=== PATIENT | male | born 1935 | race Caucasian/White ===

== ENCOUNTER 2019-07-25 11:41 | Inpatient (IN) | payer MEDICARE ==
[~2019-07-25] VITALS: Ht 165.1 cm; Wt 78.0 kg
[2019-07-25 20:10] VITALS: BP 136/61
[2019-07-25] MEDS ORDERED: ACET-2154 PO (21:04)
[2019-07-25] MEDS ORDERED: CLOP75TA15 PO (21:04)
[2019-07-25] MEDS ORDERED: ASPI-866 PO (21:04)
[2019-07-25] MEDS ORDERED: ATOR80TA PO (21:04)
[2019-07-25] MEDS ORDERED: TAMS-3 PO (21:04)
[2019-07-25] MEDS ORDERED: GABA100C PO (21:04)
[2019-07-25] MEDS ORDERED: DEXTROSE 50% 50 ML DISP.SYRIN IV PRN (21:15)
[2019-07-25] MEDS ORDERED: ACETAMINOPHEN 325 MG TABLET PO PRN (21:30)
--- NOTE | 2019-07-25 21:34 | NUR ---
Admitted patient from [facility] with admitting diagnosis of CVA. Patient arrived in the unit @1910 by vanessa. VSS, condition fair. AAO x1 only by name, with periods of confusion. No acute distress or SOB was noted. On room air. No complain of pain. All admission works done. Medication reconciliation done and contacted [facility] on-call doctor, Mariposa Cardenas will do the reconciliation. MRSA swab done and sent to the lab. Physical assessment done. Skin assessed, there are some bruises on the left and right FA and hands as well as a large bruises (15 x7 cm) over the right side of abdomen and right flank, pictures taken and put in the chart. DVT pump in place and working. Fall precaution observed, safety measures maintained. Bed in the low and locked position, side rails up x2 for safety, bed alarm on. Educated patient to use call light when needs something. Call light and frequently using items within reach. Continue to monitor.
--- NOTE | 2019-07-25 22:53 | NUR ---
Patient complained of being uncomfortable with DVT pump and tried to remove it. Explained the benefits of DVT pump, still asked to remove it. Took off the DVT pump. Continue to monitor.
--- NOTE | 2019-07-25 23:57 | NUR ---
Patient tried to get out of bed multiple times. Not aware of his limitation, stated "I have to go out of bed to pee". Helped him to pee using urinal. Bed alarm is on. Continue to close monitor.
[2019-07-26 05:22] VITALS: BP 144/64
[2019-07-26] MEDS: BLOOD SUGAR DIAGNOSTIC 1 EACH STRIP VI SCH ×4 (07:04→20:42)
[2019-07-26 08:40] VITALS: BP 148/52
[2019-07-26] MEDS: CLOPIDOGREL 75 MG TABLET PO SCH (09:25)
[2019-07-26] MEDS: GABAPENTIN 100 MG CAPSULE PO SCH ×2 (09:25→16:25)
[2019-07-26] MEDS: ASPIRIN EC 81 MG TABLET.DR PO SCH (09:25)
[2019-07-26] MEDS: INSULIN REGULAR, HUMAN 300 UNIT/3 ML VIAL SQ PRN (12:06)
[2019-07-26] MEDS: AMLODIPINE 5 MG TABLET PO SCH (13:34)
[2019-07-26 16:01] VITALS: BP 98/56
--- NOTE | 2019-07-26 17:29 | NUR ---
303 Patient stable, no distress noted or reports of pain. Fall, aspiration and skin precautions in place. Followed by therapies, kindly refer to notes. Patient oriented to self only, redirecting/reorienting as needed, slurred speech. Compliant with treatment and medication. End of shift chart check done, will endorse care to oncoming shift.
[2019-07-26 20:27] VITALS: BP 103/53
[2019-07-26] MEDS: TAMSULOSIN HCL 0.4 MG CAP.SR.24H PO SCH (20:31)
[2019-07-26] MEDS: INSULIN REGULAR, HUMAN 300 UNITS/3 ML VIAL SQ PRN (20:31)
[2019-07-26] MEDS: ATORVASTATIN 40 MG TABLET PO SCH (20:32)
[2019-07-26] MEDS ORDERED: Medication Not On Formulary EA (Atorvastatin Calcium (Lipitor) 80 MG) PO SCH (21:00)
--- NOTE | 2019-07-27 03:38 | NUR ---
Received patient in bed. AAO x 2, some periods of confusion. No acute distress or SOB was noted. On room air. No complain of pain. Physical assessment done. safety measures maintain, fall prevention observed. Skin assessed. All due medications administered and tolerated well. Accu check @ 2100: 146 covered with 2 units insulin based on sliding scale. All needs attended promptly. Bed in locked and low position, side rails up x2 for safety, bed alarm on. Call light and frequently using items within reach. Continue to monitor and will endorse to day shift nurse.
[2019-07-27 04:20] VITALS: BP 113/54
[2019-07-27] MEDS: BLOOD SUGAR DIAGNOSTIC 1 EACH STRIP VI SCH ×4 (06:36→20:07)
[2019-07-27 07:17] LABS: BASOPHILS # (AUTO) 0.1 K/uL (0.0-8.0); BASOPHILS % (AUTO) 1.2 % (0.0-2.0); EOSINOPHILS # (AUTO) 0.2 K/uL (0.0-0.7); EOSINOPHILS % (AUTO) 3.2 % (0.0-7.0); HEMATOCRIT 36.5 % (36.7-47.1); HEMOGLOBIN 12.3 g/dL (12.5-16.3); LYMPHOCYTES # (AUTO) 1.7 K/uL (20.0-40.0); LYMPHOCYTES % (AUTO) 27.6 % (20.5-51.5); MEAN CORPUSCULAR HEMOGLOBIN 29.5 uug (23.8-33.4); MEAN CORPUSCULAR HGB CONC 34 g/dL (32.5-36.3); MEAN CORPUSCULAR VOLUME 87.3 fL (73.0-96.2); MONOCYTES # (AUTO) 0.6 K/uL (2.0-10.0); MONOCYTES % (AUTO) 9.1 % (0.0-11.0); NEUTROPHILS # (AUTO) 3.6 K/uL (1.8-8.9); NEUTROPHILS % (AUTO) 58.9 % (38.5-71.5); PLATELET COUNT (AUTO) 208 K/uL (152-348); RED BLOOD CELL COUNT(AUTO) 4.19 MIL/uL (4.06-5.63); WHITE BLOOD COUNT (AUTO) 6.1 K/uL (3.6-10.2)
[2019-07-27 07:37] LABS: ALANINE AMINOTRANSFERASE 25 U/L (16-63); ALKALINE PHOSPHATASE 80 U/L (50-136); ASPARTATE AMINOTRANSFERASE 22 U/L (15-37); BILIRUBIN,TOTAL 0.7 mg/dL (0.2-1.0); CARBON DIOXIDE 29 mmol/L (21-32); CHLORIDE 105 mmol/L (98-107); CREATININE 1.9 mg/dL (0.6-1.3); GLUCOSE 110 mg/dL (74-106); MAGNESIUM 1.6 mg/dL (1.8-2.4); PHOSPHOROUS 3.6 mg/dL (2.5-4.9); POTASSIUM 4.2 mmol/L (3.5-5.1); TOTAL PROTEIN, SERUM 6.9 g/dL (6.4-8.2); UREA NITROGEN, BLOOD 24 mg/dL (7-18)
[2019-07-27] MEDS: GABAPENTIN 100 MG CAPSULE PO SCH ×2 (08:47→17:02)
[2019-07-27] MEDS: ASPIRIN EC 81 MG TABLET.DR PO SCH (08:47)
[2019-07-27] MEDS: CLOPIDOGREL 75 MG TABLET PO SCH (08:47)
[2019-07-27] MEDS: AMLODIPINE 5 MG TABLET PO SCH (08:47)
[2019-07-27] MEDS ORDERED: MAGNESIUM OXIDE 400 MG TABLET PO ONE (11:30)
[2019-07-27 11:41] VITALS: BP 130/59
[2019-07-27] MEDS: INSULIN REGULAR, HUMAN 300 UNIT/3 ML VIAL SQ PRN (12:03)
[2019-07-27 16:00] VITALS: BP 118/36
[2019-07-27] MEDS: ATORVASTATIN 40 MG TABLET PO SCH (20:00)
[2019-07-27] MEDS: TAMSULOSIN HCL 0.4 MG CAP.SR.24H PO SCH (20:00)
[2019-07-27] MEDS: INSULIN REGULAR, HUMAN 300 UNITS/3 ML VIAL SQ PRN (20:09)
[2019-07-28 05:27] VITALS: BP 137/46
--- NOTE | 2019-07-28 05:44 | NUR ---
Received patient in bed. AAO x 1, some periods of confusion. No acute distress or SOB was noted. On room air. No complain of pain. Physical assessment done. safety measures maintain, fall prevention observed. Skin assessed. All due medications administered and tolerated well. Accu check @ 2100: 155 covered with 2 units insulin based on sliding scale. All needs attended promptly. Bed in locked and low position, side rails up x2 for safety, bed alarm on. Call light and frequently using items within reach. Continue to monitor and will endorse to day shift nurse.
[2019-07-28] MEDS: BLOOD SUGAR DIAGNOSTIC 1 EACH STRIP VI SCH ×4 (06:30→20:42)
[2019-07-28 07:30] VITALS: BP 117/41
[2019-07-28] MEDS: GABAPENTIN 100 MG CAPSULE PO SCH ×2 (08:43→17:06)
[2019-07-28] MEDS: AMLODIPINE 5 MG TABLET PO SCH (08:43)
[2019-07-28] MEDS: ASPIRIN EC 81 MG TABLET.DR PO SCH (08:43)
[2019-07-28] MEDS: CLOPIDOGREL 75 MG TABLET PO SCH (08:44)
[2019-07-28] MEDS: INSULIN REGULAR, HUMAN 300 UNIT/3 ML VIAL SQ PRN ×2 (08:47→12:12)
--- NOTE | 2019-07-28 08:58 | NUR ---
PATIENT CALM AND COMFORTABLE WITH NO SIGNS OF DISTRESS; PATIENT WITH STABLE VITAL SIGNS ; PATIENT CONTINUE TO BE MONITORED.
--- NOTE | 2019-07-28 09:35 | NUR ---
INDIVIDUALIZED PLAN OF CARE
[2019-07-28 16:00] VITALS: BP 149/54
--- NOTE | 2019-07-28 18:46 | NUR ---
PATIENT CALM AND COMFORTABLE THROUGH OUT SHIFT; PATIENT HAD COUGHING EPISODE AFTER LUNCH; CXR DONE TO R/O ASPIRATION ; NO EVIDENCE PER REPORT. PATIENT ANOX2 ; PATIENT MUST REORIENTED THROUGH OUT SHIFT.
[2019-07-28 19:57] VITALS: BP 108/86
--- NOTE | 2019-07-28 19:57 | NUR ---
Received patient awake and alert in bed, A/Ox1. slightly slurred speech noted. No complaints of pain or SOB. Vitals WNL. Fall and aspiration precautions initiated. Bed is low and locked, call light within reach, side rails up x3. Per day shift nurse patient gets confused at times, trying to get out of bed. Bed alarm on. Will continue to monitor.
[2019-07-28] MEDS: ATORVASTATIN 40 MG TABLET PO SCH (20:42)
[2019-07-28] MEDS: TAMSULOSIN HCL 0.4 MG CAP.SR.24H PO SCH (20:42)
[2019-07-28] MEDS: INSULIN REGULAR, HUMAN 300 UNITS/3 ML VIAL SQ PRN (20:44)
--- NOTE | 2019-07-28 22:00 | NUR ---
When STATISTICS MANAGER changing patient, noted non-blanchable redness, per STATISTICS MANAGER she took care of patient before and had no redness before. Took picture, cleaned, applied z-guard and mepilex and ordered wound care consult. Will continue to monitor.
[2019-07-29 05:05] VITALS: BP 140/48
[2019-07-29] MEDS: BLOOD SUGAR DIAGNOSTIC 1 EACH STRIP VI SCH ×4 (06:34→21:00)
[2019-07-29 07:44] VITALS: BP 143/47
[2019-07-29] MEDS: CLOPIDOGREL 75 MG TABLET PO SCH (08:57)
[2019-07-29] MEDS: ASPIRIN EC 81 MG TABLET.DR PO SCH (08:57)
[2019-07-29] MEDS: GABAPENTIN 100 MG CAPSULE PO SCH ×2 (08:57→17:00)
[2019-07-29] MEDS: AMLODIPINE 5 MG TABLET PO SCH (09:02)
--- NOTE | 2019-07-29 10:30 | NUR ---
LALO Note: SW met with patient today and conducted the Post Stroke Depression Screening and patient scored a level 6, which requires a psychiatry consultation. This hand sign writer informed patient's nurse, Lorna about the psychiatry consult request. Clinical Care Manager informed the patient about the importance of stroke. Patient was provided stroke referrals such as: Stroke Family Warmline at (0-504-6-STROKE) and Caring for a stroke survivor ( ). call circuit worker also educated patient on the signs of Stroke and to immediately call 911. Clinical Care Manager provided patient with a stroke educational packet with information such as; Dietary food, what stroke is, risks, emotional support, finding support, medical management, and effects of stroke.
--- NOTE | 2019-07-29 10:45 | NUR ---
CALL RECEIVED FROM REHAB CHIEF INVESTIGATOR WANTED ME TO WRITE AN ORDER FOR PSYCH EVAL NOTIFIED HER THAT PHYSICIAN EVALUATION IS USUALLY DOCTOR TO DOCTOR AND THAT I WILL NOTIFY DR MAZARIEGOS HIS MEDICAL DOCTOR FOR THE ORDER. CALLED DR ROGERS AND NOTIFIED HIM AND HE STATED [facility] WILL EVALUATE THE PATIENT AND WILL ACT ON THIS.
--- NOTE | 2019-07-29 11:39 | NUR ---
WOUND CARE CONSULT: PT PRESENTS WITH MULTIPLE AREAS OF BRUISING, PRESENT ON ADMISSION. PT ALSO NOTED TO HAVE DISCOLORATION TO BILATERAL BUTTOCKS, POSSIBLE FROM SHEARING. SKIN IS FRAGILE. RECOMMENDATIONS MADE FOR SKIN PROTECTION. DISCUSSED WITH NURSING STAFF. WILL SEE PRN. LYNNE IN AGREEMENT WITH PLAN OF CARE. Addendum: 07/29/19 at 1140 by LB JOLLEY RN Amended: Links added.
[2019-07-29] MEDS: INSULIN REGULAR, HUMAN 300 UNIT/3 ML VIAL SQ PRN ×2 (12:45→17:20)
[2019-07-29 15:59] VITALS: BP 143/55
--- NOTE | 2019-07-29 17:30 | NUR ---
PATIENT IS IN HIS ROOM FEEDING SELF SOMEWHAT CONFUSED BUT ALERT TO SELF REFUSED HIS NEURONTIN AT THIS TIME PATIENT MADE COMFORTABLE AND WILL CONTINUE TO OBSERVE.
[2019-07-29 20:00] VITALS: BP 142/52
--- NOTE | 2019-07-29 20:00 | NUR ---
Received patient awake and alert x1. Patient shows no signs or symptoms of distress at this time. Vital signs stable. Call light within reach. Side rails x2 are up. Bed set to lowest position. Will continue to monitor patient.
[2019-07-29] MEDS: TAMSULOSIN HCL 0.4 MG CAP.SR.24H PO SCH (20:54)
[2019-07-29] MEDS: ATORVASTATIN 40 MG TABLET PO SCH (20:54)
[2019-07-29] MEDS: Z GUARD REMEDY PASTE 57 GM TUBE TOP SCH (21:05)
--- NOTE | 2019-07-29 23:56 | NUR ---
Endorsed patient to NUSRAT Diaz, for continuity of care.
[2019-07-30] VITALS: BP 128/39
--- NOTE | 2019-07-30 00:58 | NUR ---
asleep upon rounds. admitted for a change in mental status. Needs attended. Incontinent of urine. Kept clean and dry. VSS. Fall precautions maintained. Siderails up for safety. No acute distress noted.
[2019-07-30 04:00] VITALS: BP 128/39
--- NOTE | 2019-07-30 06:08 | NUR ---
End of shift notes: Quiet night. VSS Incontinent of large amount of urine. Kept clean and dry. No BM noted this shift. Attended to needs. Will monitor patient. Accucheck 125, Siderails up for safety.
[2019-07-30] MEDS: BLOOD SUGAR DIAGNOSTIC 1 EACH STRIP VI SCH ×4 (06:33→20:21)
[2019-07-30 08:00] VITALS: BP 160/51
[2019-07-30] MEDS: GABAPENTIN 100 MG CAPSULE PO SCH ×2 (09:28→18:02)
[2019-07-30] MEDS: CLOPIDOGREL 75 MG TABLET PO SCH (09:28)
[2019-07-30] MEDS: ASPIRIN EC 81 MG TABLET.DR PO SCH (09:28)
[2019-07-30] MEDS: AMLODIPINE 5 MG TABLET PO SCH (09:29)
[2019-07-30] MEDS: Z GUARD REMEDY PASTE 57 GM TUBE TOP SCH ×2 (09:29→20:22)
[2019-07-30] MEDS: INSULIN REGULAR, HUMAN 300 UNIT/3 ML VIAL SQ PRN ×2 (09:30→12:32)
[2019-07-30 16:04] VITALS: BP 137/44
[2019-07-30] MEDS: INSULIN REGULAR, HUMAN 300 UNITS/3 ML VIAL SQ PRN ×2 (18:02→20:24)
[2019-07-30 20:14] VITALS: BP 136/61
[2019-07-30] MEDS: TAMSULOSIN HCL 0.4 MG CAP.SR.24H PO SCH (20:22)
[2019-07-30] MEDS: ATORVASTATIN 40 MG TABLET PO SCH (20:22)
--- NOTE | 2019-07-31 03:31 | NUR ---
Received patient in bed. AAO x 1, some periods of confusion. No acute distress or SOB was noted. On room air. No complain of pain. Physical assessment done. safety measures maintain, fall prevention observed. Skin assessed. All due medications administered and tolerated well. Accu check @ 2100: 141 covered with 2 units insulin based on sliding scale. All needs attended promptly. Assisted him to the bathroom as needed. Bed in locked and low position, side rails up x2 for safety, bed alarm on. Call light and frequently using items within reach. Continue to monitor and will endorse to day shift nurse.
[2019-07-31 04:46] VITALS: BP 100/62
[2019-07-31] MEDS: BLOOD SUGAR DIAGNOSTIC 1 EACH STRIP VI SCH ×4 (06:30→20:44)
[2019-07-31] MEDS: GABAPENTIN 100 MG CAPSULE PO SCH ×2 (09:03→17:10)
[2019-07-31] MEDS: ASPIRIN EC 81 MG TABLET.DR PO SCH (09:03)
[2019-07-31] MEDS: CLOPIDOGREL 75 MG TABLET PO SCH (09:03)
[2019-07-31] MEDS: Z GUARD REMEDY PASTE 57 GM TUBE TOP SCH ×2 (09:05→20:38)
[2019-07-31 09:07] VITALS: BP 141/55
[2019-07-31] MEDS: AMLODIPINE 5 MG TABLET PO SCH (09:07)
[2019-07-31 09:26] LABS: HEMATOCRIT 38.1 % (36.7-47.1); MEAN CORPUSCULAR HEMOGLOBIN 29.8 uug (23.8-33.4); MEAN CORPUSCULAR HGB CONC 34 g/dL (32.5-36.3); MEAN CORPUSCULAR VOLUME 87.7 fL (73.0-96.2); PLATELET COUNT (AUTO) 316 K/uL (152-348); RED BLOOD CELL COUNT(AUTO) 4.35 MIL/uL (4.06-5.63); WHITE BLOOD COUNT (AUTO) 10.9 K/uL (3.6-10.2)
[2019-07-31 09:32] LABS: BASOPHILS % (AUTO) 0.6 % (0.0-2.0); EOSINOPHILS % (AUTO) 0.4 % (0.0-7.0); LYMPHOCYTES % (AUTO) 18.6 % (20.5-51.5); MONOCYTES % (AUTO) 4.9 % (0.0-11.0); NEUTROPHILS % (AUTO) 75.5 % (38.5-71.5)
[2019-07-31] MEDS: INSULIN REGULAR, HUMAN 300 UNIT/3 ML VIAL SQ PRN ×2 (09:36→11:34)
[2019-07-31 11:09] LABS: ALANINE AMINOTRANSFERASE 29 U/L (16-63); ALKALINE PHOSPHATASE 110 U/L (50-136); ASPARTATE AMINOTRANSFERASE 25 U/L (15-37); BILIRUBIN,TOTAL 0.5 mg/dL (0.2-1.0); CARBON DIOXIDE 28 mmol/L (21-32); CHLORIDE 99 mmol/L (98-107); CHOLESTEROL 153 mg/dL (<200); CREATININE 2.1 mg/dL (0.6-1.3); GLUCOSE 203 mg/dL (74-106); HDL CHOLESTEROL 54 mg/dL (40-60); MAGNESIUM 1.9 mg/dL (1.8-2.4); PHOSPHOROUS 3.3 mg/dL (2.5-4.9); POTASSIUM 3.9 mmol/L (3.5-5.1); TRIGLYCERIDES 77 MG/DL (30-150); UREA NITROGEN, BLOOD 28 mg/dL (7-18)
[2019-07-31 12:22] LABS: THYROID STIMULATING HORMONE 5.003 mIU/mL (0.358-3.740)
[2019-07-31 16:00] VITALS: BP 144/58
--- NOTE | 2019-07-31 17:39 | NUR ---
Patient alert, oriented x 1, not in any form of distress, on room air, and no complain of any pain or discomfort during the shift. Due medications administered and tolerated well. Needs attended to promptly. Call light and frequently used items placed within patient's reach. Safety measures maintained.
--- NOTE | 2019-07-31 19:30 | NUR ---
Sleeping during initial rounds with HOB elevated. No s/s of respiratory distress. No s/s of pain/discomforts at this time. Safety measures and fall precaution maintained. Continue care as planned.
[2019-07-31 20:03] VITALS: BP 143/53
[2019-07-31] MEDS: ATORVASTATIN 10 MG TABLET PO SCH (20:38)
[2019-07-31] MEDS: TAMSULOSIN HCL 0.4 MG CAP.SR.24H PO SCH (20:38)
[2019-07-31] MEDS: INSULIN REGULAR, HUMAN 300 UNITS/3 ML VIAL SQ PRN (20:47)
[2019-08-01 04:03] VITALS: BP 132/60
--- NOTE | 2019-08-01 05:54 | NUR ---
Shift End Report: VS stable. Slept good. No complaint presented all night. No fall/injury. Ambulated to the bathroom with minimal assist with slow unsteady gait. All needs attended and met. Bed bath given. Good skin/gilberto care rendered after each incontinence. No significant event reported. Continue current rehab plan of care.
[2019-08-01] MEDS: BLOOD SUGAR DIAGNOSTIC 1 EACH STRIP VI SCH (06:31)
[2019-08-01 08:00] VITALS: BP 119/43
[2019-08-01] MEDS: ASPIRIN EC 81 MG TABLET.DR PO SCH (09:40)
[2019-08-01] MEDS: GABAPENTIN 100 MG CAPSULE PO SCH ×2 (09:40→16:38)
[2019-08-01] MEDS: AMLODIPINE 5 MG TABLET PO SCH (09:40)
[2019-08-01] MEDS: Z GUARD REMEDY PASTE 57 GM TUBE TOP SCH ×2 (09:41→20:48)
[2019-08-01] MEDS: CLOPIDOGREL 75 MG TABLET PO SCH (09:41)
--- NOTE | 2019-08-01 11:53 | NUR ---
INTERDISCIPLINARY TEAM CONFERENCE
[2019-08-01 15:39] VITALS: BP 132/55
--- NOTE | 2019-08-01 18:52 | NUR ---
patient vitals stable, participated with PT, OT services, no distress noted
--- NOTE | 2019-08-01 19:30 | NUR ---
Awake and alert, in bed, watching TV when received. HOB elevated. No s/s of respiratory distress. Denies any pain/discomforts at this time. Safety measures and fall precaution maintained. Continue care as planned.
[2019-08-01 20:17] VITALS: BP 131/48
[2019-08-01] MEDS: ATORVASTATIN 10 MG TABLET PO SCH (20:48)
[2019-08-01] MEDS: TAMSULOSIN HCL 0.4 MG CAP.SR.24H PO SCH (20:48)
[2019-08-02 04:43] VITALS: BP 134/58
--- NOTE | 2019-08-02 05:48 | NUR ---
Shift End Report: VS stable. Slept well. No problem/complaint presented. No fall/injury. All needs attended and met. No significant event reported all night. Continue current rehab plan of care.
[2019-08-02 06:37] LABS: BASOPHILS % (AUTO) 0.3 % (0.0-2.0); EOSINOPHILS # (AUTO) 0.2 K/uL (0.0-0.7); EOSINOPHILS % (AUTO) 2.6 % (0.0-7.0); HEMATOCRIT 34.7 % (36.7-47.1); HEMOGLOBIN 11.7 g/dL (12.5-16.3); LYMPHOCYTES # (AUTO) 1.6 K/uL (20.0-40.0); LYMPHOCYTES % (AUTO) 24.6 % (20.5-51.5); MEAN CORPUSCULAR HEMOGLOBIN 29.6 uug (23.8-33.4); MEAN CORPUSCULAR HGB CONC 34 g/dL (32.5-36.3); MEAN CORPUSCULAR VOLUME 87.5 fL (73.0-96.2); MONOCYTES # (AUTO) 0.6 K/uL (2.0-10.0); MONOCYTES % (AUTO) 8.8 % (0.0-11.0); NEUTROPHILS # (AUTO) 4.2 K/uL (1.8-8.9); NEUTROPHILS % (AUTO) 63.7 % (38.5-71.5); PLATELET COUNT (AUTO) 273 K/uL (152-348); RED BLOOD CELL COUNT(AUTO) 3.97 MIL/uL (4.06-5.63); WHITE BLOOD COUNT (AUTO) 6.5 K/uL (3.6-10.2)
[2019-08-02 07:00] LABS: ALANINE AMINOTRANSFERASE 28 U/L (16-63); ALKALINE PHOSPHATASE 80 U/L (50-136); ASPARTATE AMINOTRANSFERASE 23 U/L (15-37); BILIRUBIN,TOTAL 0.5 mg/dL (0.2-1.0); CARBON DIOXIDE 29 mmol/L (21-32); CHLORIDE 103 mmol/L (98-107); CREATININE 1.9 mg/dL (0.6-1.3); GLUCOSE 130 mg/dL (74-106); PHOSPHOROUS 3.6 mg/dL (2.5-4.9); POTASSIUM 4.1 mmol/L (3.5-5.1); TOTAL PROTEIN, SERUM 7.1 g/dL (6.4-8.2); UREA NITROGEN, BLOOD 30 mg/dL (7-18)
--- NOTE | 2019-08-02 07:32 | NUR ---
Patient noted resting in bed, no facial cues of pain, no signs of distress noted, call light in reach, bed locked and lowest position, all needs met at this time
[2019-08-02 08:44] VITALS: BP 155/59
[2019-08-02] MEDS: CLOPIDOGREL 75 MG TABLET PO SCH (09:02)
[2019-08-02] MEDS: GABAPENTIN 100 MG CAPSULE PO SCH ×2 (09:02→16:54)
[2019-08-02] MEDS: ASPIRIN EC 81 MG TABLET.DR PO SCH (09:02)
[2019-08-02] MEDS: Z GUARD REMEDY PASTE 57 GM TUBE TOP SCH ×2 (09:03→20:22)
[2019-08-02] MEDS: AMLODIPINE 5 MG TABLET PO SCH (09:03)
[2019-08-02 16:05] VITALS: BP 125/41
--- NOTE | 2019-08-02 19:04 | NUR ---
no changes this shift, no complaints of pain this shift, all needs met
--- NOTE | 2019-08-02 19:30 | NUR ---
Up and peeing by his room door when received. Pleasant, calm and cooperative. Denies any pain/discomforts at this time. Safety measures and fall precaution maintained. Continue care as planned.
[2019-08-02 20:00] VITALS: BP 126/42
[2019-08-02] MEDS: ATORVASTATIN 10 MG TABLET PO SCH (20:21)
[2019-08-02] MEDS: TAMSULOSIN HCL 0.4 MG CAP.SR.24H PO SCH (20:21)
[2019-08-02] MEDS: DOCUSATE SODIUM 100 MG CAPSULE PO SCH (20:21)
--- NOTE | 2019-08-03 06:44 | NUR ---
Shift End Report: VS stable. No complaint presented. Slept fair. All needs attended and met. Got confused and disoriented at around 4Am. Got up and dressed up and he said he's ready to go home. Instructed patient that he can not go home yet till his PMD said so. Assisted back to back, made comfortable. No fall/injury reported. Continue current rehab plan of care.
--- NOTE | 2019-08-03 07:49 | NUR ---
Patient noted resting in bed with eyes closed, no facial cues of pain noted at this time, no signs of distress noted, call light in reach, bed locked and lowest position, all needs met at this time
[2019-08-03 08:00] VITALS: BP 118/43
[2019-08-03] MEDS: MULTIVITAMINS,THERAPEUTIC TABLET PO SCH (08:09)
[2019-08-03] MEDS: GABAPENTIN 100 MG CAPSULE PO SCH ×2 (08:10→17:16)
[2019-08-03] MEDS: ASPIRIN EC 81 MG TABLET.DR PO SCH (08:10)
[2019-08-03] MEDS: CLOPIDOGREL 75 MG TABLET PO SCH (08:10)
[2019-08-03] MEDS: Z GUARD REMEDY PASTE 57 GM TUBE TOP SCH ×2 (08:11→20:48)
[2019-08-03] MEDS: AMLODIPINE 5 MG TABLET PO SCH (08:15)
[2019-08-03 16:50] VITALS: BP 129/45
--- NOTE | 2019-08-03 18:57 | NUR ---
no changes this shift, all needs met
--- NOTE | 2019-08-03 20:00 | NUR ---
Received patient awake and alert in bed. A/Ox2, forgetful. No signs of acute distress noted. No complaints of pain or SOB. Patient stated that he has been doing well with PT. Safety measures initiated. Bed is low and locked, call light within reach. Will continue to monitor.
[2019-08-03 20:17] VITALS: BP 143/67
[2019-08-03 20:20] VITALS: BP 134/53
[2019-08-03] MEDS: ATORVASTATIN 10 MG TABLET PO SCH (20:41)
[2019-08-03] MEDS: TAMSULOSIN HCL 0.4 MG CAP.SR.24H PO SCH (20:41)
[2019-08-03] MEDS: DOCUSATE SODIUM 100 MG CAPSULE PO SCH (20:41)
[2019-08-04 05:00] VITALS: BP 115/43
[2019-08-04 08:18] VITALS: BP 154/47
[2019-08-04] MEDS: MULTIVITAMINS,THERAPEUTIC TABLET PO SCH (09:41)
[2019-08-04] MEDS: CLOPIDOGREL 75 MG TABLET PO SCH (09:41)
[2019-08-04] MEDS: GABAPENTIN 100 MG CAPSULE PO SCH ×2 (09:41→16:44)
[2019-08-04] MEDS: ASPIRIN EC 81 MG TABLET.DR PO SCH (09:41)
[2019-08-04] MEDS: AMLODIPINE 5 MG TABLET PO SCH (09:42)
[2019-08-04] MEDS: Z GUARD REMEDY PASTE 57 GM TUBE TOP SCH ×2 (09:43→20:22)
[2019-08-04 15:45] VITALS: BP 132/40
--- NOTE | 2019-08-04 18:46 | NUR ---
no changes this shift
--- NOTE | 2019-08-04 19:30 | NUR ---
RECEIVED PT AWAKE, ALERT AND ORIENTEDX2. PT IN NO ACUTE DISTRESS. SAFETY AND COMFORT PROVIDED. NEEDS REORIENTATION. PT EASILY IRRITATED. PT DOESN'T WANT TO BE CHANGED. WILL CONTINUE TO MONITOR.
[2019-08-04 19:57] VITALS: BP 140/35
[2019-08-04] MEDS: ATORVASTATIN 10 MG TABLET PO SCH (20:22)
[2019-08-04] MEDS: TAMSULOSIN HCL 0.4 MG CAP.SR.24H PO SCH (20:22)
[2019-08-04] MEDS: DOCUSATE SODIUM 100 MG CAPSULE PO SCH (20:22)
[2019-08-04] MEDS: Z GUARD REMEDY PASTE 57 GM TUBE TOP PRN (22:12)
[2019-08-05 05:50] VITALS: BP 101/54
--- NOTE | 2019-08-05 06:15 | NUR ---
PRESCRIBED MEDICATION GIVEN AND PT TOLERATED IT WELL. SAFETY AND COMFORT PROVIDED. PLACED REMEDY ZGUARD ON SACRAL AREA. ALL NEEDS ARE MET. WILL ENDORSE TO INCOMING NURSE FOR CONTINUITY OF CARE.
[2019-08-05] MEDS: Z GUARD REMEDY PASTE 57 GM TUBE TOP PRN (06:42)
[2019-08-05 08:48] VITALS: BP 104/50
[2019-08-05] MEDS: MULTIVITAMINS,THERAPEUTIC TABLET PO SCH (09:03)
[2019-08-05] MEDS: CLOPIDOGREL 75 MG TABLET PO SCH (09:03)
[2019-08-05] MEDS: GABAPENTIN 100 MG CAPSULE PO SCH ×2 (09:03→17:25)
[2019-08-05] MEDS: ASPIRIN EC 81 MG TABLET.DR PO SCH (09:04)
[2019-08-05] MEDS: AMLODIPINE 5 MG TABLET PO SCH (09:04)
[2019-08-05] MEDS: Z GUARD REMEDY PASTE 57 GM TUBE TOP SCH ×2 (09:05→20:59)
[2019-08-05 15:42] VITALS: BP 147/51
--- NOTE | 2019-08-05 19:35 | NUR ---
Up and walking in his room with FWW during initial rounds. Denies any s/s of respiratory distress/ pain/discomforts at this time. Safety measures and fall precaution maintained. Continue care as planned.
[2019-08-05 20:00] VITALS: BP 155/54
[2019-08-05] MEDS: ATORVASTATIN 10 MG TABLET PO SCH (20:58)
[2019-08-05] MEDS: TAMSULOSIN HCL 0.4 MG CAP.SR.24H PO SCH (20:58)
[2019-08-05] MEDS: DOCUSATE SODIUM 100 MG CAPSULE PO SCH (20:58)
[2019-08-06 04:00] VITALS: BP 136/59
--- NOTE | 2019-08-06 05:51 | NUR ---
Shift End Report: VS stable. Slept well. More coherent and cooperative this time. No complaint presented all night. No fall/injury. Ambulated to the BR with walker in slow but steady gait. All needs attended and met. No significant event reported. Continue current rehab plan of care.
[2019-08-06 06:57] LABS: CARBON DIOXIDE 29 mmol/L (21-32); CHLORIDE 106 mmol/L (98-107); CREATININE 1.8 mg/dL (0.6-1.3); GLUCOSE 147 mg/dL (74-106); POTASSIUM 4.4 mmol/L (3.5-5.1); UREA NITROGEN, BLOOD 27 mg/dL (7-18)
[2019-08-06 08:00] VITALS: BP 141/51
[2019-08-06] MEDS: CLOPIDOGREL 75 MG TABLET PO SCH (09:11)
[2019-08-06] MEDS: GABAPENTIN 100 MG CAPSULE PO SCH ×2 (09:11→17:29)
[2019-08-06] MEDS: MULTIVITAMINS,THERAPEUTIC TABLET PO SCH (09:11)
[2019-08-06] MEDS: ASPIRIN EC 81 MG TABLET.DR PO SCH (09:11)
[2019-08-06] MEDS: Z GUARD REMEDY PASTE 57 GM TUBE TOP SCH ×2 (09:12→20:41)
[2019-08-06] MEDS: AMLODIPINE 5 MG TABLET PO SCH (09:12)
--- NOTE | 2019-08-06 15:58 | NUR ---
no changes noted, patient is alert, oriented x3, no sob, resp even nonlabored, skin warm and dry to touch, participated in OT, PT, tolerated well, no distress noted, ambulatory with FWW, with supervision, no skin issues noted
[2019-08-06 16:00] VITALS: BP 143/53
--- NOTE | 2019-08-06 19:35 | NUR ---
Ambulating in the hallways with FWW during initial rounds. No SOB/SOBOE presented. Instructed/demonstrated to patient proper use of walker during ambulation. Patient able to return demonstration.
[2019-08-06 20:00] VITALS: BP 124/65
[2019-08-06] MEDS: TAMSULOSIN HCL 0.4 MG CAP.SR.24H PO SCH (20:40)
[2019-08-06] MEDS: DOCUSATE SODIUM 100 MG CAPSULE PO SCH (20:40)
[2019-08-06] MEDS: ATORVASTATIN 10 MG TABLET PO SCH (20:40)
[2019-08-07 04:00] VITALS: BP 149/58
--- NOTE | 2019-08-07 07:00 | NUR ---
Received patient in bed awake. Pt. is AAO x 1-2 with episodes of forgetfulness. No SOB noted. VS stable. NO slurred speech noted, able to express needs. Safety measures in place and will continue with care.
--- NOTE | 2019-08-07 07:03 | NUR ---
Shift End Report: VS stable. Slept good. No complaint presented all night. All needs attended and met. No significant event reported all night. Continue current rehab plan of care.
[2019-08-07 08:27] VITALS: BP 136/47
[2019-08-07] MEDS: AMLODIPINE 5 MG TABLET PO SCH (09:00)
[2019-08-07] MEDS: MULTIVITAMINS,THERAPEUTIC TABLET PO SCH (09:06)
[2019-08-07] MEDS: ASPIRIN EC 81 MG TABLET.DR PO SCH (09:06)
[2019-08-07] MEDS: CLOPIDOGREL 75 MG TABLET PO SCH (09:06)
[2019-08-07] MEDS: GABAPENTIN 100 MG CAPSULE PO SCH ×2 (09:06→18:00)
[2019-08-07] MEDS: Z GUARD REMEDY PASTE 57 GM TUBE TOP SCH ×2 (09:07→21:46)
[2019-08-07 14:36] VITALS: BP 127/46
--- NOTE | 2019-08-07 19:00 | NUR ---
NO new change of condition noted. In stable condition. Patient assisted to bathroom several times. patient ambulatory with a walker and 1 person assist. Pt. refused PT/OT during shift, stated "I don't want to do anything, I can walk by myself". Explained to patient regarding PT/OT but still refused. Due medications administered as ordered and tolerated well. Patient compliant with care, Needs attended, safety measures in place, bed alarm on, call light left at bed side, endorsed to next shift and will continue with care.
[2019-08-07 20:09] VITALS: BP 138/54
[2019-08-07] MEDS: DOCUSATE SODIUM 100 MG CAPSULE PO SCH (21:45)
[2019-08-07] MEDS: ATORVASTATIN 10 MG TABLET PO SCH (21:45)
[2019-08-07] MEDS: TAMSULOSIN HCL 0.4 MG CAP.SR.24H PO SCH (21:45)
--- NOTE | 2019-08-07 22:00 | NUR ---
Patient noted resting in bed with eyes closed, axox2, confused and believes he is attending a ceremony tomorrow morning. Denies any pain or discomfort at the moment. No signs of distress, no SOB noted, call light in reach, bed locked and lowest position, bed alarm on, all needs met at this time. Skin dry warm to touch and intact. No new changes noted. All due medication administered and taken as tolerated crushed with apple sauce. Gets out of bed often to use the restroom, BRP with stand by assist. Will continue to monitor through the night.
[2019-08-08 04:09] VITALS: BP 133/40
[2019-08-08 05:58] LABS: CARBON DIOXIDE 24 mmol/L (21-32); CHLORIDE 104 mmol/L (98-107); CREATININE 1.8 mg/dL (0.6-1.3); GLUCOSE 137 mg/dL (74-106); POTASSIUM 4.5 mmol/L (3.5-5.1); UREA NITROGEN, BLOOD 26 mg/dL (7-18)
--- NOTE | 2019-08-08 05:58 | NUR ---
VS stable. Slept good. No complaint presented all night. All needs attended and met. No significant event reported all night. Continue current rehab plan of care.
[2019-08-08 08:01] VITALS: BP 140/39
[2019-08-08] MEDS: CLOPIDOGREL 75 MG TABLET PO SCH (08:37)
[2019-08-08] MEDS: MULTIVITAMINS,THERAPEUTIC TABLET PO SCH (08:37)
[2019-08-08] MEDS: GABAPENTIN 100 MG CAPSULE PO SCH ×2 (08:37→16:56)
[2019-08-08] MEDS: ASPIRIN EC 81 MG TABLET.DR PO SCH (08:38)
[2019-08-08] MEDS: AMLODIPINE 5 MG TABLET PO SCH (08:39)
[2019-08-08] MEDS: Z GUARD REMEDY PASTE 57 GM TUBE TOP SCH ×2 (08:40→21:41)
[2019-08-08 10:31] LABS: BASOPHILS % (AUTO) 0.5 % (0.0-2.0); EOSINOPHILS # (AUTO) 0.2 K/uL (0.0-0.7); EOSINOPHILS % (AUTO) 2.4 % (0.0-7.0); HEMATOCRIT 37.6 % (36.7-47.1); HEMOGLOBIN 12.7 g/dL (12.5-16.3); LYMPHOCYTES # (AUTO) 1.3 K/uL (20.0-40.0); LYMPHOCYTES % (AUTO) 19.6 % (20.5-51.5); MEAN CORPUSCULAR HEMOGLOBIN 29.6 uug (23.8-33.4); MEAN CORPUSCULAR HGB CONC 34 g/dL (32.5-36.3); MEAN CORPUSCULAR VOLUME 87.8 fL (73.0-96.2); MONOCYTES # (AUTO) 0.4 K/uL (2.0-10.0); MONOCYTES % (AUTO) 5.4 % (0.0-11.0); NEUTROPHILS # (AUTO) 4.9 K/uL (1.8-8.9); NEUTROPHILS % (AUTO) 72.1 % (38.5-71.5); PLATELET COUNT (AUTO) 284 K/uL (152-348); RED BLOOD CELL COUNT(AUTO) 4.28 MIL/uL (4.06-5.63); WHITE BLOOD COUNT (AUTO) 6.8 K/uL (3.6-10.2)
--- NOTE | 2019-08-08 10:38 | NUR ---
Received patient awake in bed. Alert and confused. Patient refuse medication at first then agree with apple sauce. Patient continue therapy for increase strenght and endurance. Patient ongoing pain management if needed. not in distress. Patient continue fall and aspiration risk precaution maintained. will continue monitor for safety.
--- NOTE | 2019-08-08 16:12 | NUR ---
INTERDISCIPLINARY TEAM CONFERENCE
[2019-08-08 16:13] VITALS: BP 139/59
[2019-08-08 20:09] VITALS: BP 138/36
[2019-08-08] MEDS: TAMSULOSIN HCL 0.4 MG CAP.SR.24H PO SCH (21:40)
[2019-08-08] MEDS: DOCUSATE SODIUM 100 MG CAPSULE PO SCH (21:40)
[2019-08-08] MEDS: ATORVASTATIN 10 MG TABLET PO SCH (21:41)
--- NOTE | 2019-08-09 04:37 | NUR ---
Received patient in bed. AAO x 3. No acute distress or SOB was noted. On room air. No complain of pain. Physical assessment done. safety measures maintain, fall prevention observed. Skin assessed. All due medications administered and tolerated well. All needs attended promptly. Assisted him to the bathroom as needed. Bed in locked and low position, side rails up x2 for safety, bed alarm on. Call light and frequently using items within reach. Continue to monitor and will endorse to day shift nurse accordingly.
[2019-08-09] MEDS: AMLODIPINE 5 MG TABLET PO SCH (09:00)
[2019-08-09] MEDS: ASPIRIN EC 81 MG TABLET.DR PO SCH (09:21)
[2019-08-09] MEDS: GABAPENTIN 100 MG CAPSULE PO SCH ×2 (09:21→17:50)
[2019-08-09] MEDS: MULTIVITAMINS,THERAPEUTIC TABLET PO SCH (09:21)
[2019-08-09] MEDS: CLOPIDOGREL 75 MG TABLET PO SCH (09:21)
[2019-08-09] MEDS: Z GUARD REMEDY PASTE 57 GM TUBE TOP SCH ×2 (09:22→22:32)
--- NOTE | 2019-08-09 09:45 | NUR ---
Received patient in bed awake. Pt. is AAO x 1-2. No SOB noted. VS stable for patient. call light left at bed side and will continue with care.
[2019-08-09 16:33] VITALS: BP 118/53
[2019-08-09] MEDS ORDERED: MAGNESIUM HYDROXIDE 30 ML LIQUID UDC PO PRN (18:00)
--- NOTE | 2019-08-09 18:48 | NUR ---
Patient compliant with care, all due meds administered as ordered and scheduled. PRN MOM administered during shift. Patient on continuos PT/OT patient was up with PT for exercise. Also BRP with one person assist. Skin kept clean and dry, safety measures in place, call light left at bed side, needs met and will continue with care.
[2019-08-09 20:45] VITALS: BP 122/64
[2019-08-09] MEDS: TAMSULOSIN HCL 0.4 MG CAP.SR.24H PO SCH (22:32)
[2019-08-09] MEDS: ATORVASTATIN 10 MG TABLET PO SCH (22:32)
[2019-08-09] MEDS: DOCUSATE SODIUM 100 MG CAPSULE PO SCH (22:32)
--- NOTE | 2019-08-10 04:33 | NUR ---
Received patient in bed. AAO x 3. No acute distress or SOB was noted. On room air. No complain of pain. Physical assessment done. safety measures maintained, fall prevention observed. All due medications administered and tolerated well. All needs attended promptly. Assisted him to the bathroom as needed. Bed in locked and low position, side rails up x2 for safety, bed alarm on. Call light and frequently using items within reach. Continue to monitor and will endorse to day shift nurse accordingly.
--- NOTE | 2019-08-10 04:35 | NUR ---
Patient refused to have skin assessment on the sacral area. Explained the importance of skin assessment, still refused. Continue to monitor.
[2019-08-10 05:54] VITALS: BP 120/54
[2019-08-10] MEDS: ASPIRIN EC 81 MG TABLET.DR PO SCH (08:21)
[2019-08-10] MEDS: GABAPENTIN 100 MG CAPSULE PO SCH ×2 (08:22→17:44)
[2019-08-10] MEDS: MULTIVITAMINS,THERAPEUTIC TABLET PO SCH (08:22)
[2019-08-10] MEDS: Z GUARD REMEDY PASTE 57 GM TUBE TOP SCH ×2 (08:22→21:22)
[2019-08-10] MEDS: CLOPIDOGREL 75 MG TABLET PO SCH (08:22)
[2019-08-10] MEDS: AMLODIPINE 5 MG TABLET PO SCH (09:00)
--- NOTE | 2019-08-10 11:05 | NUR ---
Received patient in bed, pt. is aao x 1-2. no sob or any acute distress noted. vital signs stable for patient. no complains of pain at this time. morning due medications administered as ordered and scheduled and tolerated. no right sided weakness noted. patient ambulatory with a walker and one person assist. skin kept clean and dry. call light left within easy reach. will continue with care.
[2019-08-10 11:31] VITALS: BP 114/39
[2019-08-10 16:24] VITALS: BP 148/48
--- NOTE | 2019-08-10 19:34 | NUR ---
patient in stable condition, vs within normal limit. denies any pain. Pt. cooperative with care. Needs attended, safety measures in place, call light left at bed side, endorsed to next shift and will continue with care.
[2019-08-10 20:00] VITALS: BP 132/52
[2019-08-10] MEDS: DOCUSATE SODIUM 100 MG CAPSULE PO SCH (21:22)
[2019-08-10] MEDS: ATORVASTATIN 10 MG TABLET PO SCH (21:22)
[2019-08-10] MEDS: TAMSULOSIN HCL 0.4 MG CAP.SR.24H PO SCH (21:22)
--- NOTE | 2019-08-10 23:07 | NUR ---
Received patient in bed. AAO x 3, confused and need reorientation to time. No acute distress or SOB was noted. On room air so signs of SOB or distress noted. No complaint of pain at this time. Safety measures maintained, fall prevention observed. All due medications administered and tolerated well, crushed with pudding. All needs attended to promptly. Stand by Assist patient to the bathroom as needed. Bed in locked and low position, side rails up x2 for safety, bed alarm on. Call light and frequently using items within reach. Continue to monitor.
[2019-08-11 04:00] VITALS: BP 132/54
--- NOTE | 2019-08-11 05:58 | NUR ---
Patient slept through the night, no complaints noted. VS stable. Slept fair. All needs attended and met.No fall/injury reported, safety measure in place, bed locked lowered, x2 rails, call light and all personal items within reach. Continue current rehab plan of care will endorse report to next shift.
[2019-08-11 06:19] LABS: BASOPHILS % (AUTO) 0.5 % (0.0-2.0); EOSINOPHILS # (AUTO) 0.1 K/uL (0.0-0.7); EOSINOPHILS % (AUTO) 2.3 % (0.0-7.0); HEMATOCRIT 36.6 % (36.7-47.1); HEMOGLOBIN 12.3 g/dL (12.5-16.3); LYMPHOCYTES # (AUTO) 1.7 K/uL (20.0-40.0); LYMPHOCYTES % (AUTO) 29.2 % (20.5-51.5); MEAN CORPUSCULAR HEMOGLOBIN 29.7 uug (23.8-33.4); MEAN CORPUSCULAR HGB CONC 34 g/dL (32.5-36.3); MEAN CORPUSCULAR VOLUME 88.5 fL (73.0-96.2); MONOCYTES # (AUTO) 0.5 K/uL (2.0-10.0); MONOCYTES % (AUTO) 8.3 % (0.0-11.0); NEUTROPHILS # (AUTO) 3.5 K/uL (1.8-8.9); NEUTROPHILS % (AUTO) 59.7 % (38.5-71.5); PLATELET COUNT (AUTO) 244 K/uL (152-348); RED BLOOD CELL COUNT(AUTO) 4.13 MIL/uL (4.06-5.63); WHITE BLOOD COUNT (AUTO) 5.8 K/uL (3.6-10.2)
[2019-08-11 06:39] LABS: ALANINE AMINOTRANSFERASE 41 U/L (16-63); ALKALINE PHOSPHATASE 85 U/L (50-136); ASPARTATE AMINOTRANSFERASE 23 U/L (15-37); BILIRUBIN,TOTAL 0.5 mg/dL (0.2-1.0); CARBON DIOXIDE 31 mmol/L (21-32); CHLORIDE 103 mmol/L (98-107); CREATININE 1.8 mg/dL (0.6-1.3); GLUCOSE 137 mg/dL (74-106); MAGNESIUM 2.2 mg/dL (1.8-2.4); PHOSPHOROUS 3.8 mg/dL (2.5-4.9); POTASSIUM 4.4 mmol/L (3.5-5.1); TOTAL PROTEIN, SERUM 6.8 g/dL (6.4-8.2); UREA NITROGEN, BLOOD 27 mg/dL (7-18)
[2019-08-11 08:00] VITALS: BP 141/48
[2019-08-11] MEDS: CLOPIDOGREL 75 MG TABLET PO SCH (08:28)
[2019-08-11] MEDS: MULTIVITAMINS,THERAPEUTIC TABLET PO SCH (08:28)
[2019-08-11] MEDS: ASPIRIN EC 81 MG TABLET.DR PO SCH (08:29)
[2019-08-11] MEDS: GABAPENTIN 100 MG CAPSULE PO SCH ×2 (08:29→16:57)
[2019-08-11] MEDS: AMLODIPINE 5 MG TABLET PO SCH (08:29)
[2019-08-11] MEDS: Z GUARD REMEDY PASTE 57 GM TUBE TOP SCH ×2 (08:30→20:49)
--- NOTE | 2019-08-11 15:52 | NUR ---
Received patient awake in bed in stable condition. Alert with periods of confusion. Patient continue fall risk precaution maintained. Patient continue aspiration risk precaution. Patient continue therapy for increase strenght and endurance. Encourage and reorient patient to use call light when going to the bathroom. Bed alarm on. will continue monitor
[2019-08-11 16:41] VITALS: BP 139/49
[2019-08-11 20:00] VITALS: BP 124/69
[2019-08-11] MEDS: TAMSULOSIN HCL 0.4 MG CAP.SR.24H PO SCH (20:48)
[2019-08-11] MEDS: ATORVASTATIN 10 MG TABLET PO SCH (20:49)
[2019-08-11] MEDS: DOCUSATE SODIUM 100 MG CAPSULE PO SCH (20:49)
[2019-08-12 04:00] VITALS: BP 126/45
--- NOTE | 2019-08-12 04:49 | NUR ---
Received patient in bed. AAO x 3. No acute distress or SOB was noted. On room air. No complain of pain. safety measures maintain, fall prevention observed. Bed in locked and low position, side rails up x2 for safety, bed alarm on Skin assessed. All due medications administered and tolerated well, crushed and given with pudding. All needs attended promptly. Assisted him to the bathroom as needed. Call light and frequently using items within reach. no new changes noted Continue to monitor and will endorse to day shift nurse accordingly.
[2019-08-12 06:24] LABS: BASOPHILS % (AUTO) 0.4 % (0.0-2.0); EOSINOPHILS # (AUTO) 0.1 K/uL (0.0-0.7); EOSINOPHILS % (AUTO) 2.4 % (0.0-7.0); HEMOGLOBIN 12.3 g/dL (12.5-16.3); LYMPHOCYTES # (AUTO) 1.6 K/uL (20.0-40.0); LYMPHOCYTES % (AUTO) 26.5 % (20.5-51.5); MEAN CORPUSCULAR HGB CONC 34 g/dL (32.5-36.3); MEAN CORPUSCULAR VOLUME 87.4 fL (73.0-96.2); MONOCYTES # (AUTO) 0.5 K/uL (2.0-10.0); MONOCYTES % (AUTO) 8.4 % (0.0-11.0); NEUTROPHILS # (AUTO) 3.8 K/uL (1.8-8.9); NEUTROPHILS % (AUTO) 62.3 % (38.5-71.5); PLATELET COUNT (AUTO) 249 K/uL (152-348); RED BLOOD CELL COUNT(AUTO) 4.12 MIL/uL (4.06-5.63)
[2019-08-12 06:33] LABS: CARBON DIOXIDE 31 mmol/L (21-32); CHLORIDE 104 mmol/L (98-107); CREATININE 1.8 mg/dL (0.6-1.3); GLUCOSE 148 mg/dL (74-106); POTASSIUM 4.9 mmol/L (3.5-5.1); UREA NITROGEN, BLOOD 27 mg/dL (7-18)
[2019-08-12 07:30] VITALS: BP 131/34
[2019-08-12] MEDS: MULTIVITAMINS,THERAPEUTIC TABLET PO SCH (09:13)
[2019-08-12] MEDS: CLOPIDOGREL 75 MG TABLET PO SCH (09:13)
[2019-08-12] MEDS: AMLODIPINE 5 MG TABLET PO SCH (09:14)
[2019-08-12] MEDS: ASPIRIN EC 81 MG TABLET.DR PO SCH (09:14)
[2019-08-12] MEDS: Z GUARD REMEDY PASTE 57 GM TUBE TOP SCH ×2 (09:14→20:10)
[2019-08-12] MEDS: GABAPENTIN 100 MG CAPSULE PO SCH ×2 (09:14→17:14)
--- NOTE | 2019-08-12 15:12 | NUR ---
Received patient awake in bed in stable condition. Patient continue fall risk precaution maintained. Bed alarm on. Patient continue therapy for increase strenght and therapeutic exercises.tolerated well. Patient continue pain management if needed. no complaint of pain/discomfort noted. not in distress. will continue monitor
[2019-08-12 16:00] VITALS: BP 126/42
--- NOTE | 2019-08-12 18:52 | NUR ---
Patient was very confuse. Upon assisting in the bathroom. Patient verbalize, " what the year today? then the investigative writer ask him what he thinks, He said it is 1936. Patient was interviewed where he is, he said he is [facility]. Patient was reorient the right right information. Patient spoke to daughter Derek, she said its not usual to him. MD made aware. no new order as of now. will continue monitor
[2019-08-12 20:00] VITALS: BP 140/48
[2019-08-12] MEDS: TAMSULOSIN HCL 0.4 MG CAP.SR.24H PO SCH (20:09)
[2019-08-12] MEDS: ATORVASTATIN 10 MG TABLET PO SCH (20:09)
[2019-08-12] MEDS: DOCUSATE SODIUM 100 MG CAPSULE PO SCH (20:09)
[2019-08-13 04:00] VITALS: BP 130/49
--- NOTE | 2019-08-13 05:22 | NUR ---
Received patient in bed. AAO x 2, able to verbalize name and jordan of , does not recall his date of and the year it is today. No acute distress or SOB was noted. On room air. No complaints of pain. safety measures maintained, fall prevention observed. Bed in locked and low position, side rails up x2 for safety, bed alarm on. Skin assessed, pictures taken. All due medications administered and tolerated well, crushed and given with pudding. All needs attended promptly. offered patient snacks. Assisted him to the bathroom as needed. Call light and frequently using items within reach. No new changes noted. Continue to monitor and will endorse to day shift nurse accordingly.
[2019-08-13 08:33] VITALS: BP 140/40
[2019-08-13] MEDS: GABAPENTIN 100 MG CAPSULE PO SCH ×2 (10:40→16:13)
[2019-08-13] MEDS: MULTIVITAMINS,THERAPEUTIC TABLET PO SCH (10:40)
[2019-08-13] MEDS: CLOPIDOGREL 75 MG TABLET PO SCH (10:41)
[2019-08-13] MEDS: AMLODIPINE 5 MG TABLET PO SCH (10:41)
[2019-08-13] MEDS: Z GUARD REMEDY PASTE 57 GM TUBE TOP SCH ×2 (10:41→20:35)
[2019-08-13] MEDS: ASPIRIN EC 81 MG TABLET.DR PO SCH (10:41)
[2019-08-13 16:30] VITALS: BP 144/44
--- NOTE | 2019-08-13 19:45 | NUR ---
Awake during initial rounds. Denies any pain/discomforts at thsi time. Safety measures and fall precaution maintained. Continue care as planned.
[2019-08-13 20:00] VITALS: BP 123/48
[2019-08-13] MEDS: DOCUSATE SODIUM 100 MG CAPSULE PO SCH (20:34)
[2019-08-13] MEDS: TAMSULOSIN HCL 0.4 MG CAP.SR.24H PO SCH (20:34)
[2019-08-13] MEDS: ATORVASTATIN 10 MG TABLET PO SCH (20:34)
[2019-08-14 04:00] VITALS: BP 127/44
--- NOTE | 2019-08-14 05:47 | NUR ---
Shift End Report: VS stable. Slept well. No complaint presented. Ambulatory to the bathroom with minimal assist. No fall/injury reported. All needs attended and met. NO significant event reported all night. Continue current rehab plan of care.
[2019-08-14 08:48] VITALS: BP 122/46
[2019-08-14] MEDS: CLOPIDOGREL 75 MG TABLET PO SCH (08:54)
[2019-08-14] MEDS: MULTIVITAMINS,THERAPEUTIC TABLET PO SCH (08:54)
[2019-08-14] MEDS: GABAPENTIN 100 MG CAPSULE PO SCH ×2 (08:55→17:12)
[2019-08-14] MEDS: AMLODIPINE 5 MG TABLET PO SCH (08:55)
[2019-08-14] MEDS: ASPIRIN EC 81 MG TABLET.DR PO SCH (08:55)
[2019-08-14] MEDS: Z GUARD REMEDY PASTE 57 GM TUBE TOP SCH ×2 (09:19→20:21)
--- NOTE | 2019-08-14 10:01 | NUR ---
Patient awake, alert not in any form of distress, on room air. Patient denies any pain or discomfort at this time. Assisted with his needs promptly. Call light and frequently used items placed within patient's reach. Safety measures maintained.
[2019-08-14 15:05] VITALS: BP 143/50
--- NOTE | 2019-08-14 19:45 | NUR ---
In bed, awake, watching TV. Denies any pain/discomforts at this time. Safety measures and fall precaution maintained. Continue care as planned.
[2019-08-14 20:14] VITALS: BP 122/44
[2019-08-14] MEDS: ATORVASTATIN 10 MG TABLET PO SCH (20:21)
[2019-08-14] MEDS: DOCUSATE SODIUM 100 MG CAPSULE PO SCH (20:21)
[2019-08-14] MEDS: TAMSULOSIN HCL 0.4 MG CAP.SR.24H PO SCH (20:21)
[2019-08-15 05:24] VITALS: BP 118/58
--- NOTE | 2019-08-15 05:47 | NUR ---
Shift End Report; Slept well. No complaint presented all night. All needs attended and met. No significant event reported. Continue current rehab plan of care. VS stable.
[2019-08-15 07:47] VITALS: BP 121/49
[2019-08-15] MEDS: CLOPIDOGREL 75 MG TABLET PO SCH (08:43)
[2019-08-15] MEDS: ASPIRIN EC 81 MG TABLET.DR PO SCH (08:43)
[2019-08-15] MEDS: MULTIVITAMINS,THERAPEUTIC TABLET PO SCH (08:43)
[2019-08-15] MEDS: GABAPENTIN 100 MG CAPSULE PO SCH (08:43)
[2019-08-15] MEDS: Z GUARD REMEDY PASTE 57 GM TUBE TOP SCH (08:50)
[2019-08-15] MEDS: AMLODIPINE 5 MG TABLET PO SCH (10:12)
[2019-08-15 10:13] VITALS: BP 142/61
[2019-08-15 14:08] VITALS: BP 135/52
--- NOTE | 2019-08-15 14:25 | NUR ---
Received a discharge order to board and care with PT, OT, ST and nursing services from Dr. Ulrich. Patient made aware and agreeable.
--- NOTE | 2019-08-15 15:38 | NUR ---
Discharge instructions provided to the patient with verbalized understanding. Discharge papers signed by and given to the patient. All belongings well accounted for and brought with the patient. Discharge photos taken. Patient remains alert, oriented x2, not in any form of distress on room air. Vital signs stable. Patient is ambulatory with assist. No complain of any pain or discomfort. Assisted patient safely to the lobby. DME (FWW, bedside commode and wheelchair) brought with the patient. Patient discharged to [place] [id number], picked up by Christal Dno (patient's niece) via private car. Discharge instructions provided to Christal with verbalized understanding.
== END 2019-08-15 15:25 | disposition home health service (06) | DRG 56 ==
PROVIDERS: ADMIT Physical Medicine & Rehabilitation Pain Medicine; ATTEND Physical Medicine & Rehabilitation Pain Medicine
DX: I69.351 Hemiplegia and hemiparesis following cerebral infarction affecting right dominant side (principal); N17.0 Acute kidney failure with tubular necrosis; D68.59 Other primary thrombophilia; G93.40 Encephalopathy, unspecified; M62.82 Rhabdomyolysis; I69.320 Aphasia following cerebral infarction; I69.322 Dysarthria following cerebral infarction; I69.398 Other sequelae of cerebral infarction; D64.9 Anemia, unspecified; E78.5 Hyperlipidemia, unspecified; I10 Essential (primary) hypertension; I69.392 Facial weakness following cerebral infarction; I25.10 Atherosclerotic heart disease of native coronary artery without angina pectoris; N40.0 Benign prostatic hyperplasia without lower urinary tract symptoms; E03.9 Hypothyroidism, unspecified; R26.2 Difficulty in walking, not elsewhere classified; F01.50 Vascular dementia, unspecified severity, without behavioral disturbance, psychotic disturbance, mood disturbance, and anxiety; E11.22 Type 2 diabetes mellitus with diabetic chronic kidney disease; E83.42 Hypomagnesemia; G62.9 Polyneuropathy, unspecified; I12.9 Hypertensive chronic kidney disease with stage 1 through stage 4 chronic kidney disease, or unspecified chronic kidney disease; N18.9 Chronic kidney disease, unspecified; Z68.28 Body mass index [BMI] 28.0-28.9, adult; E66.9 Obesity, unspecified
CPT/HCPCS: 36415; 71046; 82652; 83735; 84100; 84443; 85025; A4663; J1815